=== PATIENT | female | born 2005 | race Caucasian/White ===

== ENCOUNTER 2025-08-01 16:58 | Inpatient (IN) | payer BC ==
[2025-08-01] MEDS ORDERED: Ondansetron PF 4 MG/2 ML Vial ONE (17:42)
[2025-08-01 18:04] LABS: #Basophils Less than 0.03 10x3/uL (0.0-0.2); #Eosinophils 0.05 10x3/uL (0.0-0.5); #Monocytes 1.35 10x3/uL (0.0-1.1); #Neutrophils 21.28 10x3/uL (1.5-8.4); %Basophils 0.1 % (0.0-2.0); %Eosinophils 0.2 % (0.0-6.0); %Lymphocytes 2.3 % (18.0-47.0); %Monocytes 5.8 % (0.0-10.0); %Neutrophils 91.0 % (40.0-75.0); Hematocrit 39.5 % (34.9-44.5); Hemoglobin 13.0 g/dL (12.0-15.5); Mean Corpuscular Hemoglobin 31.4 pg (27.0-33.0); Mean Corpuscular Volume 95.4 fL (81.6-98.3); Platelet Count 350 10x3/uL (150-450); Red Blood Cell (RBC) Count 4.14 10x6/uL (3.90-5.03); White Blood Cell (WBC) Count 23.37 10x3/uL (3.5-10.5)
[2025-08-01 18:47] LABS: Cocaine Metabolite Screen Negative (Negative); THC/Cannabinoid Screen PRELIM POSITIVE (Negative); Tricyclic Screen Negative (Negative)
[2025-08-01 18:49] LABS: BHCG - Serum Negative (NEGATIVE); Pregs Control Background? CLEAR/WHITE (CLR/WHITE); Pregs Control Bar Appear? YES (CONTROL BAR)
[2025-08-01 18:54] LABS: Acetaminophen Less than 10 mcg/mL (Less than 10); Salicylate Less than 8.0 mg/dL (Less than 8.0)
[2025-08-01 18:55] LABS: ALT (SGPT) 13 U/L (Less than 34); AST (SGOT) 26 U/L (11-34); Albumin 4.1 g/dL (3.1-4.5); Alkaline Phosphatase 59 U/L (40-100); Anion Gap 16 mmol/L (10-20); BUN (Urea Nitrogen) 15 mg/dL (7.0-18.7); Bilirubin, Total 0.3 mg/dL (0.3-1.2); Calc. Creatinine Clearance 0 mL/min (70-130); Calcium 9.0 mg/dL (7.8-10.44); Carbon Dioxide 20 mmol/L (22-29); Chloride 109 mmol/L (98-107); Globulin 3.1 g/dL (2.4-3.5); Glucose 111 mg/dL (70-105); Potassium 4.4 mmol/L (3.5-5.1); Sodium 141 mmol/L (136-145)
[2025-08-01] MEDS ORDERED: levETIRAcetam 500 MG (5 mL) VIAL ONE (19:14)
[2025-08-01 19:15] LABS: Glucose, Urine (Dipstick) Normal (Negative); Leukocyte Negative (Negative); Protein, Urine (Dipstick) 100 mg/dl (Neg-Trace); Specific Gravity, Urine 1.025 (1.005-1.030)
[2025-08-01 19:30] LABS: Bacteria/HPF 2+ HPF (None Seen); CAUTI Indications for Culture Pelvic or flank pain; Mucous/LPF 1+ LPF (<2+)
[2025-08-01 19:40] LABS: Urine Culture Reflex No No
[2025-08-01] MEDS ORDERED: cefTRIAXone (ROCEPHIN) 2 GM VIAL ONE (22:02)
[2025-08-01 22:10] LABS: CSF, Glucose 83 mg/dl (40-70); CSF, Protein 28.3 mg/dL (15-40)
[2025-08-01 22:11] LABS: Unspun CSF Color COLORLESS (Colorless)
[2025-08-01 22:12] LABS: Color Of CSF Supernatant COLORLESS (Colorless)
[2025-08-01] MEDS ORDERED: Dexamethasone 10 MG/ML VIAL ONE (22:50)
[2025-08-01 22:54] LABS: CSF Source CSF
[2025-08-01 22:55] LABS: CSF RBC Count - Manual 0 /cu.mm (None Seen); CSF WBC/NonHematics Count-Man 1 /cu.mm (0-5)
[2025-08-01 22:57] LABS: CSF Source CSF
[2025-08-01 22:58] LABS: CSF RBC Count - Manual 5 /cu.mm (None Seen); CSF WBC/NonHematics Count-Man 2 /cu.mm (0-5)
[2025-08-01] MEDS ORDERED: Ondansetron PF 4 MG/2 ML Vial IVP PRN (23:05)
[2025-08-02] MEDS ORDERED: Ketorolac Tromethamine 30 MG (1 mL) VIAL IVP PRN (00:59)
[2025-08-02] MEDS: ACYCLOVIR SODIUM IVPB SCH (01:01)
[2025-08-02] MEDS: SODIUM CHLORIDE 0.9% IVPB SCH (01:01)
[2025-08-02] MEDS: VANCOMYCIN 2 GRAM/400 ML BAG 2 GM in Premix 1 BAG IVPB SCH (01:02)
[2025-08-02 04:54] LABS: Hematocrit 35.9 % (34.9-44.5); Hemoglobin 11.9 g/dL (12.0-15.5); Mean Corpuscular Hemoglobin 31.7 pg (27.0-33.0); Mean Corpuscular Volume 95.7 fL (81.6-98.3); Platelet Count 388 10x3/uL (150-450); Red Blood Cell (RBC) Count 3.75 10x6/uL (3.90-5.03); White Blood Cell (WBC) Count 18.39 10x3/uL (3.5-10.5)
[2025-08-02 04:56] LABS: MDiff Complete? YES; Platelet Adequacy Comment Appears Adequate; RBC Morphology Within Normal Limits
[2025-08-02 05:03] LABS: ALT (SGPT) 12 U/L (Less than 34); AST (SGOT) 33 U/L (11-34); Albumin 4.1 g/dL (3.1-4.5); Alkaline Phosphatase 56 U/L (40-100); Anion Gap 16 mmol/L (10-20); BUN (Urea Nitrogen) 11 mg/dL (7.0-18.7); Bilirubin, Total 0.4 mg/dL (0.3-1.2); CK (CPK) 275 U/L (29-168); Calc. Creatinine Clearance 139 mL/min (70-130); Calcium 9.0 mg/dL (7.8-10.44); Carbon Dioxide 18 mmol/L (22-29); Chloride 109 mmol/L (98-107); Globulin 3.1 g/dL (2.4-3.5); Glucose 103 mg/dL (70-105); Magnesium 2.0 mg/dL (1.7-2.2); Potassium 4.0 mmol/L (3.5-5.1); Sodium 139 mmol/L (136-145)
[2025-08-02] MEDS ORDERED: Acyclovir Sodium 500 mg (10 mL) Vial IVPB SCH (07:00)
[2025-08-02] MEDS: levETIRAcetam 500 MG (5 mL) VIAL SLOW IVP SCH (08:07)
[2025-08-02] MEDS: Acyclovir Sodium 800 MG in Sodium Chloride 0.9% 250 ML 250 ML IVPB SCH (09:28)
[2025-08-02] MEDS: Famotidine/PF 20 mg/2ml Vial SLOW IVP SCH (09:29)
[2025-08-02] MEDS: Enoxaparin 40 MG (0.4 mL) SYRINGE SC SCH (09:29)
[2025-08-02] MEDS: cefTRIAXone\\ROCEPHIN 2 GM in Sodium Chloride 0.9% 100 ML IVPB SCH (09:29)
[2025-08-02 12:45] LABS: #Basophils Less than 0.03 10x3/uL (0.0-0.2); #Eosinophils Less than 0.03 10x3/uL (0.0-0.5); #Monocytes 1.21 10x3/uL (0.0-1.1); #Neutrophils 17.61 10x3/uL (1.5-8.4); %Basophils 0.0 % (0.0-2.0); %Eosinophils 0.0 % (0.0-6.0); %Lymphocytes 7.9 % (18.0-47.0); %Monocytes 5.9 % (0.0-10.0); %Neutrophils 85.6 % (40.0-75.0); Hematocrit 35.2 % (34.9-44.5); Hemoglobin 11.6 g/dL (12.0-15.5); Mean Corpuscular Hemoglobin 31.6 pg (27.0-33.0); Mean Corpuscular Volume 95.9 fL (81.6-98.3); Platelet Count 372 10x3/uL (150-450); Red Blood Cell (RBC) Count 3.67 10x6/uL (3.90-5.03); White Blood Cell (WBC) Count 20.59 10x3/uL (3.5-10.5)
[2025-08-03 03:04] VITALS: BMI 26.2
[2025-08-03 03:29] LABS: #Basophils Less than 0.03 10x3/uL (0.0-0.2); #Eosinophils 0.03 10x3/uL (0.0-0.5); #Monocytes 0.77 10x3/uL (0.0-1.1); #Neutrophils 7.29 10x3/uL (1.5-8.4); %Basophils 0.2 % (0.0-2.0); %Eosinophils 0.3 % (0.0-6.0); %Lymphocytes 28.7 % (18.0-47.0); %Monocytes 6.7 % (0.0-10.0); %Neutrophils 63.8 % (40.0-75.0); Hematocrit 33.2 % (34.9-44.5); Hemoglobin 10.6 g/dL (12.0-15.5); Mean Corpuscular Hemoglobin 31.0 pg (27.0-33.0); Mean Corpuscular Volume 97.1 fL (81.6-98.3); Platelet Count 309 10x3/uL (150-450); Red Blood Cell (RBC) Count 3.42 10x6/uL (3.90-5.03); White Blood Cell (WBC) Count 11.41 10x3/uL (3.5-10.5)
[2025-08-03 03:44] LABS: ALT (SGPT) 11 U/L (Less than 34); AST (SGOT) 20 U/L (11-34); Albumin 3.8 g/dL (3.1-4.5); Alkaline Phosphatase 48 U/L (40-100); Anion Gap 9 mmol/L (10-20); BUN (Urea Nitrogen) 11 mg/dL (7.0-18.7); Bilirubin, Total 0.2 mg/dL (0.3-1.2); Calc. Creatinine Clearance 117 mL/min (70-130); Calcium 9.4 mg/dL (7.8-10.44); Carbon Dioxide 27 mmol/L (22-29); Chloride 109 mmol/L (98-107); Globulin 2.9 g/dL (2.4-3.5); Glucose 85 mg/dL (70-105); Potassium 4.2 mmol/L (3.5-5.1); Sodium 141 mmol/L (136-145)
[2025-08-03] MEDS: cefTRIAXone\\ROCEPHIN 1 GM in Sodium Chloride 0.9% 100 ML IVPB SCH (09:33)
[2025-08-03 10:46] VITALS: TEMP 97.7
[2025-08-03 11:45] VITALS: BP 115/67
[2025-08-04 15:14] LABS: HSV 1 - DNA Negative (Negative); HSV 2 - DNA Negative (Negative)
== END 2025-08-03 12:15 | disposition home or self-care (01) | DRG 948 ==
LOC: CSHERS 16:58 → CSHICU 22:38
PROVIDERS: ADMIT Student in an Organized Health Care Education/Training Program; ATTEND Internal Medicine
PROC: XX20X89 Monitoring of Brain Electrical Activity, Computer-aided Detection and Notification, New Technology Group 9 (ICD-10-PCS; principal; 2025-08-02)
DX: R41.82 Altered mental status, unspecified (principal); F12.10 Cannabis abuse, uncomplicated; D72.829 Elevated white blood cell count, unspecified; F41.9 Anxiety disorder, unspecified; R82.90 Unspecified abnormal findings in urine
CPT/HCPCS: 36415; 62270; 70450; 71045; 80053; 80306; 80307; 81001; 82550; 82945; 83605; 83735; 84100; 84145; 84146; 84157; 84443; 84703; 85025; 86140; 87040; 87070; 87086; 87205; 87428; 87498; 87529; 89051; 93005; 94760; 95705; 96365; 96375; J0133; J0696; J1100; J1650; J1953; J2060; J2250; J3375; J3411; J7050; J7120